=== PATIENT | male | born 1950 | race Caucasian/White ===

== ENCOUNTER → 2018-09-27 | Outpatient (CLI) | payer OTHER ==
[~2018-09-27] MED LIST: GADOBUTROL 10 ML VIAL IVP ONE
== END | disposition home or self-care (01) ==
LOC: FIMAGING 07:35
PROVIDERS: ATTEND Specialist
DX: Z12.5 Encounter for screening for malignant neoplasm of prostate (principal); N40.2 Nodular prostate without lower urinary tract symptoms; N42.9 Disorder of prostate, unspecified; R93.7 Abnormal findings on diagnostic imaging of other parts of musculoskeletal system
CPT/HCPCS: 72197; 76377; A9585; 82565-PO